=== PATIENT | male | born 1965 | race American Indian/Alaskan Native ===

== ENCOUNTER 2021-02-01 23:55 | Emergency (ER) | payer OTHER ==
[2021-02-02] MEDS ORDERED: IBUPROFEN 600 MG TAB PO ONE (02:23)
[2021-02-02] MEDS ORDERED: ONDANSETRON 4 MG ODT TAB PO ONE (02:23)
[2021-02-02] MEDS ORDERED: HYDROcodone/ACETAMINOPHEN 5-325 MG TAB PO ONE (02:23)
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
--- NOTE | 2021-02-02 03:37 | XRay Report ---
Left wrist 3 views INDICATION: Left wrist pain IMPRESSION: There is a obliquely oriented fracture through the ulnar styloid process. Mild overlying soft tissue edema is present. The radius appears intact. Signer Name: Ronen Sanon MD Signed: 02/02/2021 3:33 AM Workstation Name: [id number]
--- NOTE | 2021-02-02 03:38 | XRay Report ---
Lumbar spine 3 views INDICATION: Low back pain IMPRESSION: No acute fracture or subluxation. Mild multilevel discogenic and facet arthropathy especi ally at L4-L5 and L5-S1 causing mild bilateral neural foraminal narrowing. Signer Name: Ronen Sanon MD Signed: 02/02/2021 3:33 AM Workstation Name: [id number]
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
[2021-02-02 04:39] VITALS: BP 167/97
== END 2021-02-02 04:41 | disposition home or self-care (01) ==
LOC: ED 23:55
DX: S52.612A Displaced fracture of left ulna styloid process, initial encounter for closed fracture (principal); S20.219A Contusion of unspecified front wall of thorax, initial encounter; M54.50 Low back pain, unspecified; R07.89 Other chest pain; I10 Essential (primary) hypertension; V87.7XXA Person injured in collision between other specified motor vehicles (traffic), initial encounter; Y93.89 Activity, other specified; Y92.488 Other paved roadways as the place of occurrence of the external cause; Y99.8 Other external cause status
CPT/HCPCS: 71046; 72100; 99284; Q0162